=== PATIENT | male | born 1960 | race Caucasian/White ===

== ENCOUNTER → 2017-02-15 | Outpatient (CLI) | payer OTHER ==
[~2017-02-15] MED LIST: ALDACTAZIDE 251 EACH PO; ASPIRIN EC81 MG PO; CLARITIN 10MG T10 MG PO; COREG 3.125M3.125 MG PO; FLONASE 0.05% N16 GM; LISINOPRIL40 MG PO; LOPRESSOR50 MG PO; NORVASC 5 MG TAB5 MG PO; TESSALON PERLE100 MG PO
== END ==
LOC: NM 12:19
DX: I10 Essential (primary) hypertension (principal); R94.39 Abnormal result of other cardiovascular function study; I51.7 Cardiomegaly
CPT/HCPCS: 78452; 93017; A9502; J2785

== ENCOUNTER → 2020-07-05 | Outpatient (CLI) | payer OTHER ==
[~2020-07-05] MED LIST changes: +AMOXICILLIN500 MG PO; +CARVEDILOL25 MG PO; +CIPROFLOXACIN250 MG PO; +COREG 12.5MG12.5 MG PO; +COREG CR 10 MG10 MG PO; +ENTRESTO 24 MG1 EACH PO; +ENTRESTO 97 MG1 EACH PO; +FENOFIBRIC ACI135 MG PO; +FINASTERIDE5 MG PO; +FLOMAX 0.4 MG0.4 MG PO; +FUROSEMIDE20 MG PO; +FUROSEMIDE40 MG PO; +HYDRALAZINE HCL50 MG PO; +IBUPROFEN600 MG PO; +ISOSORBIDE MONO60 MG PO; +K-TAB ER20 MEQ PO; +KEFLEX CAP 500500 MG PO; +LASIX20 MG PO; +NORVASC5 MG PO; +POTASSIUM CHLO20 ME2 PO; +TOPROL XL25 MG PO
== END ==
LOC: EDSTATUS 11:12 → LAB 16:57
DX: Z12.5 Encounter for screening for malignant neoplasm of prostate (principal)
CPT/HCPCS: 36415; 84153

== ENCOUNTER → 2020-08-01 | Outpatient (CLI) | payer OTHER ==
[2020-08-01 17:17] LABS: HEMOGLOBIN 17.3 gm/dl (14.0-17.5); RED BLOOD COUNT 5.51 M/UL (4.20-5.50); WHITE BLOOD COUNT 11.5 K/UL (4.5-11.0)
[2020-08-01 18:00] LABS: BUN/CREATININE RATIO 14 (0-10)
== END ==
LOC: LAB 16:43
PROVIDERS: Internal Medicine Cardiovascular Disease
DX: I10 Essential (primary) hypertension (principal)
CPT/HCPCS: 80053; 80061; 85025

== ENCOUNTER 2020-09-26 16:05 | Emergency (ER) | payer OTHER ==
[~2020-09-26 16:05] MED LIST changes: -CARVEDILOL25 MG PO; -ENTRESTO 97 MG1 EACH PO; -FENOFIBRIC ACI135 MG PO; -FINASTERIDE5 MG PO; -FUROSEMIDE20 MG PO; -HYDRALAZINE HCL50 MG PO; -IBUPROFEN600 MG PO; -ISOSORBIDE MONO60 MG PO; -K-TAB ER20 MEQ PO; -NORVASC5 MG PO
[2020-09-26 20:55] LABS: HEMOGLOBIN 18.4 gm/dl (14.0-17.5); RED BLOOD COUNT 5.97 M/UL (4.20-5.50); WHITE BLOOD COUNT 12.8 K/UL (4.5-11.0)
[2020-09-26 21:25] LABS: BUN/CREATININE RATIO 16 (0-10)
[2020-09-27] MEDS ORDERED: IBUPROFEN600 MG PO (00:58)
[2020-11-22] MEDS ORDERED: CARVEDILOL25 MG PO (12:16)
[2020-11-22] MEDS ORDERED: FENOFIBRIC ACI135 MG PO (12:17)
[2020-11-22] MEDS ORDERED: ENTRESTO 97 MG1 EACH PO (12:17)
[2020-11-22] MEDS ORDERED: FUROSEMIDE20 MG PO (12:19)
[2020-11-22] MEDS ORDERED: FINASTERIDE5 MG PO (12:19)
[2020-11-22] MEDS ORDERED: HYDRALAZINE HCL50 MG PO (12:20)
[2020-11-22] MEDS ORDERED: NORVASC5 MG PO (12:21)
[2020-11-22] MEDS ORDERED: K-TAB ER20 MEQ PO (12:21)
[2020-11-22] MEDS ORDERED: ISOSORBIDE MONO60 MG PO (15:36)
== END 2020-09-27 02:15 | disposition home or self-care (01) ==
LOC: ER1 16:05
PROVIDERS: Physician Assistant Medical
DX: R10.9 Unspecified abdominal pain (principal); I11.0 Hypertensive heart disease with heart failure; I50.9 Heart failure, unspecified; Z90.89 Acquired absence of other organs
CPT/HCPCS: 71046; 80053; 81001; 82550; 82553; 83874; 83880; 84484; 85025; 99284

== ENCOUNTER → 2020-10-17 | Outpatient (CLI) | payer OTHER ==
[~2020-10-17] MED LIST changes: +CARVEDILOL25 MG PO; +ENTRESTO 97 MG1 EACH PO; +FENOFIBRIC ACI135 MG PO; +FINASTERIDE5 MG PO; +FUROSEMIDE20 MG PO; +HYDRALAZINE HCL50 MG PO; +IBUPROFEN600 MG PO; +ISOSORBIDE MONO60 MG PO; +K-TAB ER20 MEQ PO; +NORVASC5 MG PO
== END ==
LOC: HEART 5 07:42
DX: I11.0 Hypertensive heart disease with heart failure (principal); I50.22 Chronic systolic (congestive) heart failure; I43 Cardiomyopathy in diseases classified elsewhere; R94.31 Abnormal electrocardiogram [ECG] [EKG]; I08.1 Rheumatic disorders of both mitral and tricuspid valves; I08.8 Other rheumatic multiple valve diseases
CPT/HCPCS: 78452; 93306; A9502; J2785

== ENCOUNTER → 2020-11-14 | Outpatient (CLI) | payer OTHER ==
[2020-11-14 16:44] LABS: HEMOGLOBIN 16.4 gm/dl (14.0-17.5); RED BLOOD COUNT 5.27 M/UL (4.20-5.50); WHITE BLOOD COUNT 9.3 K/UL (4.5-11.0)
== END ==
LOC: LAB 16:09
PROVIDERS: Internal Medicine Interventional Cardiology
DX: I11.0 Hypertensive heart disease with heart failure (principal); I50.22 Chronic systolic (congestive) heart failure; R53.83 Other fatigue
CPT/HCPCS: 80048; 85025; 85610; 85730

== ENCOUNTER → 2020-11-22 | Outpatient (CLI) | payer OTHER | LOC: CATH 11:28 | DX: I25.118 Atherosclerotic heart disease of native coronary artery with other forms of angina pectoris (principal); I11.0 Hypertensive heart disease with heart failure; I50.22 Chronic systolic (congestive) heart failure; I42.9 Cardiomyopathy, unspecified; Z87.891 Personal history of nicotine dependence; Z79.899 Other long term (current) drug therapy | CPT/HCPCS: 85347; 93005; 93571; 99152; 99153; C1769; C1887; C1894; J0153; J0461; J1644; J2250; J2370; J3010; Q9965 ==